=== PATIENT | male | born 1965 | race Caucasian/White ===

== ENCOUNTER 2021-03-24 14:50 | Inpatient (IN) | payer MEDICAID, SELFPAY ==
[~2021-03-24] VITALS: Ht 193 cm; Wt 56.7 kg
[2021-03-24 15:06] VITALS: BP 130/73
--- NOTE | 2021-03-24 15:40 | NUR ---
PT AMBULATED TO BED
--- NOTE | 2021-03-24 15:45 | NUR ---
55 Y/O MALE C/O CHEST PAIN 12/30 X2DAYS. PT STATES SOB, SPO2 97% ON RA. DENIES N/V, DENIES FEVER/CHILLS. LUNG SOUNDS CLEAR. HR EVEN AND REGULAR; VSS; PATIENT POSITIONED FOR COMFORT; HOB ELEVATED; BEDRAILS UP X2; BED DOWN. ER MD MADE AWARE OF PT STATUS. DENIES PMH NKA
--- NOTE | 2021-03-24 15:45 | NUR ---
LAB AT BEDSIDE
[2021-03-24 16:05] LABS: BASOPHILS # (AUTO) 0.1 K/uL (0.00-0.22); BASOPHILS % (AUTO) 0.8 % (0.0-2.0); EOSINOPHILS # (AUTO) 0.8 K/uL (0-0.4); EOSINOPHILS % (AUTO) 10.1 % (0.0-4.0); HEMATOCRIT 38.2 % (36-52); HEMOGLOBIN 13.1 g/dL (12.0-18.0); LYMPHOCYTES # (AUTO) 1.6 K/uL (2.0-11.5); LYMPHOCYTES % (AUTO) 20.5 % (20.5-51.1); MEAN CORPUSCULAR HEMOGLOBIN 33 pg (27-31); MEAN CORPUSCULAR HGB CONC 34 g/dL (33-37); MEAN CORPUSCULAR VOLUME 97.3 fL (80-94); MONOCYTES # (AUTO) 0.6 K/uL (0.8-1.0); MONOCYTES % (AUTO) 7.6 % (1.7-9.3); NEUTROPHILS # (AUTO) 4.6 K/uL (1.8-7.7); PLATELET COUNT (AUTO) 307 K/uL (140-450); RED BLOOD CELL COUNT(AUTO) 3.93 MIL/uL (4.20-6.10); WHITE BLOOD COUNT (AUTO) 7.6 K/uL (4.8-10.8)
--- NOTE | 2021-03-24 16:30 | NUR ---
DR MARR AT BEDSIDE EXAMINING PT
[2021-03-24 16:42] LABS: ALBUMIN 3.7 g/dL (3.4-5.0); ANION GAP 12.2 (8-16); CARBON DIOXIDE 26.8 mmol/L (21-32); CREATININE 0.7 mg/dL (0.6-1.3); TOTAL BILIRUBIN 0.2 mg/dL (0.0-1.0)
--- NOTE | 2021-03-24 18:30 | NUR ---
Patient has eyes closed, appears to be resting comfortably in bed. Vital Signs within normal limits. Respirations even and unlabored. Will continue to monitor
--- NOTE | 2021-03-24 19:22 | NUR ---
Pt report given to Pb SUAREZ. Transfer of care at this time.
--- NOTE | 2021-03-24 20:20 | NUR ---
MAIN WALKED OVER TO LAB
[2021-03-24] MEDS: ASPIRIN 325 MG TAB PO ONE (20:43)
[2021-03-24] MEDS ORDERED: DOCUSATE SODIUM 100 MG GELCAP PO PRN (20:45)
[2021-03-24] MEDS ORDERED: MORPHINE SULFATE 2 MG/ML SYR IVP PRN (20:45)
[2021-03-24] MEDS ORDERED: POTASSIUM CHLORIDE 10 MEQ TABER PO PRN (20:45)
[2021-03-24] MEDS ORDERED: ONDANSETRON 4 MG/2 ML VIAL IM/IVP PRN (20:45)
[2021-03-24] MEDS ORDERED: MAGNESIUM OXIDE 400 MG TAB PO PRN (20:45)
[2021-03-24] MEDS ORDERED: ACETAMINOPHEN 325 MG TAB PO PRN (20:45)
[2021-03-24] MEDS ORDERED: SODIUM PHOS / POTASSIUM PHOS 1 PKT PDR PO PRN (20:45)
[2021-03-24 21:07] LABS: MAGNESIUM 2.3 mg/dL (1.8-2.4); PHOSPHORUS 4.1 mg/dL (2.5-4.9)
[2021-03-24] MEDS: NACL 0.9% 1,000 ML IV SCH (21:29)
[2021-03-24 21:59] LABS: BARBITURATE, URINE NEGATIVE ng/ml (NEG <=200); BENZODIAZEPINE, URINE NEGATIVE ng/mL (NEG <=200); CANNABINOID, URINE NEGATIVE ng/mL (NEG <=50); COCAINE, URINE NEGATIVE ng/mL (NEG <=300); OPIATE, URINE NEGATIVE ng/mL (NEG <=2000); PHENCYCLIDINE SCREEN,URINE NEGATIVE ng/mL (NEG <=25)
--- NOTE | 2021-03-24 22:01 | NUR ---
REPORT GIVEN TO KORY SUAREZ AT THIS TIME. NO OTHER QUESTIONS FOLLWING REPORT
--- NOTE | 2021-03-24 22:30 | NUR ---
RECEIVED REPORT FOR PT, HE CAME UP TO UNIT VIA [facility], HE IS AOX4 KHMER SPEAKING AND IS ON ROOM AIR HE HAS A LEFT F/A 18GUAGE NORMAL SALINE STARTED AT 40MLS/HR ORDERED. V/S FOLLOWS: T 99.3 P 75 R 18 B/P 109/55 02 100% ON ROOM AIR. PT DENIES ANY MEDICAL HX AND SAYS CC OF CHEST PAIN IS INTERMITTENT AND TOLERABLE AT THIS TIME. ALL UNIVERSAL PRECAUTIONS IN PLACE.
[2021-03-24 23:00] VITALS: BP 109/55
--- NOTE | 2021-03-24 23:10 | NUR ---
MRSA SWAB DONE AND ALL ADMISSION QUESTIONS ASKED AND ANSWERED VIA [employer] WITH [employer] WORKER QUINTEN ACCT NUMBER # [id number]. MRSA SWAB DONE AND PT ORIENTED TO ROOM. NORMAL SALINE RUNNING AT 40MLS/HR. PT SITTING UP HOB AT 35% AND HE IS ON ROOM AIR WITH RESPIRATIONS EVEN AND UNLABORED. ALL UNIVERSAL FALLS PRECAUTIONS IN PLACE.
[2021-03-25] MEDS: HYDROcodone/APAP 5/325 MG 1 TAB TAB PO PRN (00:13)
--- NOTE | 2021-03-25 00:15 | NUR ---
PT C/O MODERATE CHEST PAIN 09/29 HE WAS GIVEN 1 TAB OF NORCO PO/PRN. WILL MONITOR FOR EFFECT.
[2021-03-25 04:00] VITALS: BP 134/72
--- NOTE | 2021-03-25 04:00 | NUR ---
PT IN BED ASLEEP NO C/O VOICED. V/S FOLLOWS: T 97.7 P 78 R 20 B/P 134/72 02 96% ON ROOM AIR. PT ON TELE AT SR, PT CONTINUES AT NS AT 40MLS/HR. ALL UNIVERSAL FALLS PRECAUTIONS IN PLACE.
[2021-03-25 05:23] LABS: BASOPHILS # (AUTO) 0.1 K/uL (0.00-0.22); BASOPHILS % (AUTO) 2.6 % (0.0-2.0); HEMATOCRIT 37.3 % (36-52); HEMOGLOBIN 13.1 g/dL (12.0-18.0); LYMPHOCYTES # (AUTO) 1.2 K/uL (2.0-11.5); LYMPHOCYTES % (AUTO) 22.8 % (20.5-51.1); MEAN CORPUSCULAR HEMOGLOBIN 34 pg (27-31); MEAN CORPUSCULAR HGB CONC 35 g/dL (33-37); MEAN CORPUSCULAR VOLUME 96.6 fL (80-94); MONOCYTES # (AUTO) 0.5 K/uL (0.8-1.0); MONOCYTES % (AUTO) 10.3 % (1.7-9.3); NEUTROPHILS # (AUTO) 2.3 K/uL (1.8-7.7); PLATELET COUNT (AUTO) 299 K/uL (140-450); RED BLOOD CELL COUNT(AUTO) 3.86 MIL/uL (4.20-6.10); WHITE BLOOD COUNT (AUTO) 5.2 K/uL (4.8-10.8)
[2021-03-25 05:28] LABS: ANION GAP 14.6 (8-16); CARBON DIOXIDE 25.6 mmol/L (21-32); CREATININE 0.8 mg/dL (0.6-1.3); POTASSIUM 4.2 mmol/L (3.5-5.1)
[2021-03-25 06:18] LABS: EOSINOPHILS % (AUTO) 19.3 % (0.0-4.0)
--- NOTE | 2021-03-25 06:30 | NUR ---
ROUNDS DONE, PT IN BED ASLEEP NO C/O VOICED.
[2021-03-25 08:00] VITALS: BP 140/78
--- NOTE | 2021-03-25 08:00 | NUR ---
RECEIVED RECEIVED REPORT FROM CHARGE NURSE. PT IS AOX4, ABLE TO MAKE NEEDS KNOWN. RESPIRATIONS EVEN AND UNLABORED. ON ROOM AIR AND NO DISTRESS NOTED. SKIN IS WARM, DRY, AND INTACT. HAS AN IV ACCESS ON LH18G INTACT AND PATENT. IVF INFUSING WELL AT 40ML/HR. DENIES PAIN AT THE MOMENT. PLAN OF CARE DISCUSSED. SAFETY PRECAUTIONS IN PLACE. CALL LIGHT WITHIN REACH. WILL CONTINUE TO MONITOR.
--- NOTE | 2021-03-25 08:40 | NUR ---
PATIENT HAS BEEN SCREENED AND CATEGORIZED HIGH NUTRITION RISK. PATIENT WILL BE SEEN WITHIN 1-2 DAYS OF ADMISSION. 03/25/2021-03/26/[address]
[2021-03-25] MEDS: PANTOPRAZOLE 40 MG TABEC PO SCH (09:09)
--- NOTE | 2021-03-25 09:30 | NUR ---
ALL SCHEDULED MEDS GIVEN. PT IS STABLE. NO DISTRESS NOTED. WILL CONTINUE TO MONITOR.
--- NOTE | 2021-03-25 11:30 | NUR ---
CHECKED ON PATIENT. PT IS STABLE. DENIES PAIN. WILL CONTINUE TO MONITOR.
[2021-03-25 12:00] VITALS: BP 127/71
--- NOTE | 2021-03-25 14:47 | NUR ---
03/25/21 RD INITIAL ASSESSMENT COMPLETED PLEASE REFER TO NUTRITION ASSESSMENT UNDER CARE ACTIVITY FOR ESTIMATED NUTRITIONAL NEEDS. RD RECOMMENDATIONS: 1. CONTINUE CARDIAC DIET TOLERATED. 2. CONSIDER REWEIGHING PT AND DOUBLE CHECKING HEIGHT CURRENT BMI APPEARS LOW. 3. RD WILL FOLLOW UP IN 3-5 DAYS; MODERATE RISK JUN MCKINNEY, RD
--- NOTE | 2021-03-25 15:30 | NUR ---
CHECKED ON PATIENT. PT IS STABLE. DENIES PAIN. WILL CONTINUE TO MONITOR.
[2021-03-25 16:00] VITALS: BP 128/70
[2021-03-25 16:56] VITALS: BP 128/70
--- NOTE | 2021-03-25 17:30 | NUR ---
ENDORSED DISCHARGE INSTRUCTIONS TO PATIENT. PT VERBALIZED UNDERSTANDING AND SIGNED DISCHARGE FORMS.
--- NOTE | 2021-03-25 17:40 | NUR ---
PATIENT DISCHARGED OFF THE UNIT. IV CATHETER AND ID BAND REMOVED. ESCORTED TO THE FRONT LOBBY. PT WILL BE PICKED UP BY FRIEND. PT WAS STABLE PRIOR TO DISCHARGE.
--- NOTE | 2021-03-28 04:28 | NUR ---
LATE ENTRY- NS IVF DISCONTINUED AT 2201
== END 2021-03-25 17:30 | disposition home or self-care (01) | DRG 203 ==
LOC: MED 14:50 → MTU 20:47 → MMU 21:56
PROVIDERS: ADMIT Hospitalist; ATTEND Hospitalist
DX: R07.89 Other chest pain (principal); F10.20 Alcohol dependence, uncomplicated; Z20.822 Contact with and (suspected) exposure to COVID-19; F17.210 Nicotine dependence, cigarettes, uncomplicated; R74.01 Elevation of levels of liver transaminase levels; R94.31 Abnormal electrocardiogram [ECG] [EKG]
CPT/HCPCS: 36415; 71045; 80048; 80053; 80305; 83735; 84100; 84484; 85025; 87081; 93005; 96360; 99285